=== PATIENT | female | born 1935 | race Caucasian/White ===

== ENCOUNTER → 2016-12-11 | Outpatient (CLI) | payer MEDICARE, OTHER ==
--- NOTE | 2016-12-11 15:05 | KCIC ---
MRI Lumbar Spine without contrast History: Compression fracture, lifting injury, back pain Technique: Multiplanar, multi sequential noncontrast MR imaging was performed of the lumbar spine. Contrast: None Comparison: None Findings: There is some motion degradation. There is acute L2 compression fracture with edema signified by STIR hyperintense and T1 hypointense signal, osseous retropulsion of the superior margin with mild indentation upon the ventral thecal sac. There is old severe L1 compression fracture without osseous retropulsion of the superior margin, also old superior T12 compression fracture with mild osseous retropulsion of the superior margin. There is also old superior compression deformity of L4 and L5. There is susceptibility artifact of the superior sacrum created by a large screw. There is very minimal grade 1 anterior spondylolisthesis L4-5. There is minimal grade 1 posterior subluxation L2 relative L3. Conus terminates at L1-2. There is moderate to severe degenerative disc disease L2-3, to lesser degree L3-4. T11-12: Osseous retropulsion of the superior aspect of T12 slightly indents the ventral thecal sac centrally without significant spinal stenosis. Neural foramina are adequate. T12-L1: Osseous retropulsion of the superior aspect of L1 indents the ventral thecal sac greater centrally, mild to moderate narrowing of the central canal. Neural foramina are overall adequate. L1-L2: Osseous retropulsion of the superior aspect of L2 slightly indents the ventral thecal sac without significant spinal stenosis. There is moderate left and moderate to severe right neural foramina compromise. L2-L3: There is minimal bulge superimposed on the posteriorly subluxed L2 vertebral body margin. Spinal canal is not significantly narrowed. There is mild buckling of the ligamentum flavum. There is mild narrowing of the right neural foramen, left neural foramen adequate. L3-L4: There is minimal disc osteophyte complex and bulge. There is moderate to severe buckling of the ligamentum flavum greater on the right. There is [id number] left and mild right lateral recess stenosis. There is minimal narrowing of the left neural foramen, also mild narrowing on the right. L4-L5: There is moderate facet hypertrophic change and buckling of the ligamentum flavum. There is minimal posterior bulge. Combination of findings results in moderate to severe spinal stenosis with limited preserved subarachnoid space, lateral recess stenosis bilaterally greater on the left. There is very mild inferior narrowing of the right neural foramen, left neural foramen overall adequate. L5-S1: There is facet hypertrophic change. Spinal canal is obscured by susceptibility artifact on the sagittal images, grossly maintained on axial images. Neural foramina are also obscured by susceptibility artifact, likely grossly patent on the right, left not well visualized Impression: 1. There is acute L2 compression fracture with mild osseous retropulsion of the superior margin. There is other old compression deformity of T12, L1, L4, L5. 2. There is moderate to severe spinal stenosis L4-5. 3. There is neural foramina compromise as stated greatest bilaterally at L1-L2. 4. There is multilevel degenerative disc disease greatest at L2-3. There is grade 1 posterior subluxation L2 relative to L3. Electronically signed by: Primo Garcia MD (12/11/2016 3:02 PM) [id number]
== END | disposition home or self-care (01) ==
LOC: KCIC MRI 14:12
PROVIDERS: ATTEND Anesthesiology Pain Medicine
DX: S32.029A Unspecified fracture of second lumbar vertebra, initial encounter for closed fracture (principal); M51.36 Other intervertebral disc degeneration, lumbar region; M48.06 Spinal stenosis, lumbar region; X58.XXXA Exposure to other specified factors, initial encounter; Y93.89 Activity, other specified; Y92.89 Other specified places as the place of occurrence of the external cause; Y99.8 Other external cause status
CPT/HCPCS: 72148